=== PATIENT | female | born 1970 | race Caucasian/White ===

== ENCOUNTER → 2017-06-25 | Day surgery (SDC) | payer BC ==
[~2017-06-25] MED LIST: ALPR0.5T PO; IBUP-1007 PO; IV RINGERS,LACTATED 1000ML 1,000 ML IV SCH; LIDOCAINE 1% PF 2 ML VIAL. ID PRN; LIDOCAINE 2% PF Vial for OR 5 ML VIAL. ONE; MIDAZOLAM HCL/PF 2 MG/2 ML VIAL. IV PRN; PROPOFOL 20 ML IV ONE; TRAM-48 PO; fentaNYL PF VIAL 100 MCG/2 ML VIAL IV PRN
--- NOTE | 2017-06-25 11:35 | PDOC1 ---
History and Physical Date of Admission Date of Admission DATE: 06/25/17 TIME: 11:31 Source Source: Chart review, Patient History of Present Illness History of Present Illness 46 croatian/o female with nausea and dyspepsia. Also weight loss. Past Medical History Psych: Anxiety Past Surgical History Past Surgical History: Tubal Ligation Family History Family History: Cancer (ovarian), Hypertension Social History Smoke: <1 pack per day ALCOHOL: social Drugs: None Current Medications Current Medications Current Medications Midazolam HCl (Versed) 2 mg PRN 1X PRN IV PRIOR TO PROCEDURE; Start 06/25/17 at 10:00; Stop 06/26/17 at 09:59 Fentanyl Citrate (Fentanyl 2ml Vial) 25 mcg PRN Q5MIN PRN IV X 2 DOSES FOR PAIN ; Start 06/25/17 at 10:00; Stop 06/26/17 at 09:59 Fentanyl Citrate (Fentanyl 2ml Vial) 50 mcg PRN Q5MIN PRN IV X 2 DOSES FOR PAIN ; Start 06/25/17 at 10:00; Stop 06/26/17 at 09:59 Ringer's Solution 1,000 ml @ 125 mls/hr Q8H IV Last administered on 06/25/17t 11:29; Start 06/25/17 at 09:59; Stop 06/25/17 at 21:58 Lidocaine HCl (Xylocaine-Mpf 1% Vial) 2 ml 1X PRN PRN ID IV START; Start at 10:00; Stop 06/26/17 at 09:59 Active Scripts Active Ibuprofen 600 Mg Tablet 600 Mg PO PRN Q6HRS PRN Ultram (Tramadol Hcl) 50 Mg Tablet 50 Mg PO Q6H PRN Reported Xanax (Alprazolam) 0.5 Mg Tablet 1 Tab PO DAILY Allergies Allergies: Coded Allergies: No Known Drug Allergies (Unverified , 06/25/17) ROS Review of System Otherwise negative. Physical Exam General: Alert, Oriented X3, Cooperative, No acute distress Lungs: Clear to auscultation Heart: S1S2, RRR, no gallops, no murmurs Abdomen: Normal bowel sounds, Soft, No tenderness, No hepatosplenomegaly, No masses Rectal Exam: not examined Extremities: No cyanosis, No edema Skin: No significant lesion Neuro: Normal speech, Strength at 5/5 X4 ext, Normal tone, Sensation intact, Cranial nerves 3-12 NL, Reflexes 2+ Psych/Mental Status: Mental status NL, Mood NL Vitals Vitals Vital Signs Date Time Temp Pulse Resp B/P (MAP) Pulse Ox O2 Delivery O2 Flow Rate FiO2 06/25/17 11:15 97 18 97 97.0 VTE Prophylaxis Ordered VTE Prophylaxis Devices: No VTE Pharmacological Prophylaxi: No Assessment/Plan Assessment/Plan IMP: Nausea/dyspepsia/weight loss PLAN: EGD RACHEL GRAY MD Jun 25, 2017 11:35
--- NOTE | 2017-06-25 11:56 | PDOC4 ---
PROCEDURE Procedure EGD/biopsies IND: dyspepsia/wt. loss Meds: per anesthesia Findings: E--less than grade I esophagitis at 36cm. G--several shallow ulcers, prepyloric. Biopsies antrum. D--normal to second portion. Matt. well. IMP: Mild reflux 's; distributiion favors NSAID. REC: Await biopsies. Resume meds/diet as before. OTC PPI daily. F/u in 2 weeks. RACHEL GRAY MD Jun 25, 2017 11:56
[2017-06-25 11:57] LABS: NEG OBC UR NEG; POS OBC UR POS
[2017-06-25 12:11] VITALS: BP 139/77
--- NOTE | 2017-06-26 13:58 | PATHOLOGY ---
PATHOLOGY REPORT * * * * * * * * FINAL DIAGNOSIS: Gastric biopsy, antrum: - Reactive gastropathy with focal mild chronic inflammation. COMMENT: Sections of the gastric biopsy reveal segments of gastric antral and antral / body transition mucosa showing congestion, focal foveolar hyperplasia, and focal mild chronic inflammation. An immunoperoxidase stain for Helicobacter is obtained. No Helicobacter organisms are identified. There is no evidence of malignancy. (JPM:mml; 06/26/2017) REPORT ELECTRONICALLY SIGNED BY: Alex Hawkins M.D. DATE/TIME: 06/26/2017 13:48 * * * * * * * * GROSS PATHOLOGY: Received in formalin labeled "Angeline Valles, antral biopsy," are 3 segments of dent soft tissue measuring 1.3 x 0.2 x 0.3 cm in aggregate dimensions and ranging from 0.3 to 0.5 cm in maximum dimension. The specimen is submitted entirely in cassette A1. (TSD; 06/25/2017) INITIAL CPT CODE(S): A; 03365, 12032 Professional services performed by [facility] [address] Technical services performed by [facility] at [address] [place] [address]. SPECIMEN(S) RECEIVED: A.Antrum biopsy CLINICAL HISTORY: Weight loss, abdominal pain; ulcer PATIENT: ANGELINE VALLES /AGE: 1208/24/1970 (Age: 46) PATIENT #: [id number] ALT CASE #: SPECIMEN COLLECTION DATE: 06/25/2017 SPECIMEN RECEIVED DATE: 06/25/2017 [facility] - [address] [place] [address] - PHONE: [phone] * * * END OF REPORT * * *
== END | disposition home or self-care (01) ==
LOC: ENDOS 10:57
PROVIDERS: ATTEND Internal Medicine Gastroenterology
DX: K29.50 Unspecified chronic gastritis without bleeding (principal); K25.9 Gastric ulcer, unspecified as acute or chronic, without hemorrhage or perforation; K21.0 Gastro-esophageal reflux disease with esophagitis; F41.9 Anxiety disorder, unspecified; I10 Essential (primary) hypertension; Z98.51 Tubal ligation status; Z80.41 Family history of malignant neoplasm of ovary
CPT/HCPCS: 43239; 81025; 88305; 88342; J2704; J2001